=== PATIENT | male | born 1965 | race Caucasian/White ===

== ENCOUNTER → 2016-07-03 | Outpatient (CLI) | payer BC ==
[2016-07-03 14:11] VITALS: BP 133/80
== END ==
LOC: MHUC 13:27
PROVIDERS: ATTEND Physician Assistant
DX: S29.012A Strain of muscle and tendon of back wall of thorax, initial encounter (principal); S46.812A Strain of other muscles, fascia and tendons at shoulder and upper arm level, left arm, initial encounter; X58.XXXA Exposure to other specified factors, initial encounter
CPT/HCPCS: 99213

== ENCOUNTER 2016-08-07 05:16 | Emergency (ER) | payer BC, OTHER ==
[~2016-08-07] VITALS: Ht 182.9 cm; Wt 66.8 kg
[~2016-08-07 05:16] MED LIST: CYCL10TA45 PO; METH4TAB27 PO
--- OUTSIDE RECORDS SUMMARY | 2016-08-07 05:20 | XMS REPORT ---
Author Author [facility] Organization [facility] Address [address] [place] [address] Phone [phone] Summary purpose CCDA Sent to [facility] Chief Complaint and Reason for Visit Admit Diagnosis 1 OPEN WOUND OF FINGER Problem list No authorized problems tracked for continuity of care are available for this visit. Encounters No authorized problems tracked for encounter diagnoses are available for this visit. Medications No home medications recorded for this patient visit Allergies, adverse reactions, alerts Allergen Category Ingredient Status Reaction Severity Onset No Known Drug Allergy No Known Drug Allergy No Known Drug Allergy Active No Known Food Allergy No Known Food Allergy No Known Food Allergy Active Immunizations No immunizations recorded for this patient visit Relevant diagnostic tests and/or laboratory data No authorized results are available for this patient visit History of procedures Procedure Code Code Type Description Date Performed Performing Physician 08676 CPT-4 RPR S/N/AX/GEN/TRNK 2.5CM/< 12-23-2014 MARTHA PONCE 02156 CPT-4 EMERGENCY DEPT VISIT 12-23-2014 MARTHA PONCE Functional status Cognitive Status Finding Observation Time Level of Consciousne Alert 38-11-964976:28 Oriented to Person Yes 45-19-961005:[address] Yes 66-37-449028:28 Oriented to Time Yes 37-37-402913:28 Vital signs Type Value Date Respirations 16 93-56-099084:45 Pulse 79 71-58-963781:45 O2 Saturation 97% 11-20-998284:45 Systolic Blood Press 121mm/HG 94-75-213015:45 Diastolic Blood Pres 84mm/HG 55-39-579995:45 Temperature (Fahr) 98.4Degrees 31-12-561613:45 Height 71in 44-50-725676:45 Weight 170LB 64-72-522361:45 Social history Type Value Smoking Status CURRENT EVERY DAY SMOKER Treatment Plan No treatment plan text is available for this visit. Hospital discharge instructions No discharge instruction text is available for this visit.
[2016-08-07 06:26] LABS: BASOPHILS % (AUTO) 0 % (0-2); EOSINOPHILS # (AUTO) 0.2 10^3uL; EOSINOPHILS % (AUTO) 1 % (0-4); LYMPHOCYTES # (AUTO) 2.3 X10^3; MEAN CORPUSCULAR HGB CONC 34.5 g/dL (31.0-37.0); MEAN CORPUSCULAR VOLUME 92 FL (80-100); MEAN PLATELET VOLUME 9.7 FL (6.0-9.5); MONOCYTES # (AUTO) 1.5 X10^3; MONOCYTES % (AUTO) 10 % (3-11); NEUTROPHILS % (AUTO) 72 % (51-67); PLATELET COUNT 266 10^3uL (150-450); WHITE BLOOD COUNT 13.92 10^3uL (4.0-11.0)
[2016-08-07 06:33] LABS: BILIRUBIN,URINE Negative (Negative); CLARITY,URINE Clear; COLOR,URINE Yellow; GLUCOSE, URINE (UA) Negative (Negative); LEUKOCYTE ESTERASE ,URINE Negative (Negative); PH,URINE 6.5 (5.0 - 8.0); UROBILINOGEN,URINE 0.2 mg/dL (0.2-1.0)
[2016-08-07 06:38] LABS: ALBUMIN 4.1 g/dL (3.4-5.0); ANION GAP 15.9 MEQ/L (3-15); CALCULATED IONIZED CALCIUM 3.7 mg/dL (3.8-4.6); TOTAL PROTEIN 7.5 g/dL (6.4-8.5)
[2016-08-07 06:44] LABS: MEAN CORPUSCULAR HEMOGLOBIN 31.7 PG (26.0-34.0)
--- NOTE | 2016-08-07 06:54 | NUR ---
Pt report given to Jose Langley RN for continued care of pt
[2016-08-07 06:58] LABS: URINE CENTRIFUGED VOLUME 12 mL
[2016-08-07] MEDS ORDERED: AMOX500C5 PO (08:12)
[2016-08-07 08:21] VITALS: BP 125/75
== END 2016-08-07 08:19 | disposition home or self-care (01) ==
LOC: ED 05:19
DX: J32.9 Chronic sinusitis, unspecified (principal); F17.210 Nicotine dependence, cigarettes, uncomplicated
CPT/HCPCS: 36415; 80053; 81003; 81015; 84443; 85025; 86140; 86308; 87486; 87581; 87633; 87798; 99282; 99283

== ENCOUNTER → 2016-09-18 | Outpatient (CLI) | payer OTHER ==
[~2016-09-18] MED LIST changes: +AMOX500C5 PO; +POLY10DR OU; +PRED20TA PO
[2016-09-18 12:50] VITALS: BP 129/73
--- NOTE | 2016-09-18 12:50 | Urgent Care T Sheet Gen (E) ---
Intake General Temperature (Fahrenheit): 98.7 Pulse: 92 Blood Pressure Systolic: 129 Blood Pressure Diastolic: 73 Respirations: 18 SPO2: 98 Description of Symptoms Patient presents with an allergy flare up. States his eyes started to bother him on Friday. states they were matted shut when he woke up. Eyes have continued to tear and feel gritty. Notes light sensitivity. Nose has been slightly congested and he has a sore throat with mild cough. Took some Benadryl the other night which helped. History of Present Illness Allergies: Coded Allergies: No Known Drug Allergies (Unverified , 08/07/16) Home Meds Active Scripts Prednisone 20 Mg [id number] Mg PO DAILY #6 TAB Prov:CONSTANTIN CRYSTAL 09/18/16 Polymyxin B Sulfate/Tmp (Polytrim Eye Drops)10 Ml Drops1 Drop OU QID #1 BTL 1 drop in each eye QID x 7 days Prov:CONSTANTIN CRYSTAL 09/18/16 Amoxicillin (Amoxil)500 Mg [id number] Mg PO TID #30 CAP Ref 0 Prov:JUAN C TUCKER DO 08/07/16 Respiratory Constitutional Symptoms: No syptoms reported EENTM: Blurred vision Eye tearing Nose Congestion Throat pain Respiratory: Cough Cardiovascular: No symptoms reported Gastrointestinal/Abdominal: No symptoms reported All Other Systems Reviewed Remaining Systems: All other systems reviewed with negative findings Past Mrmjcgk-Nwljxj-Hpbhma Hx Patient's Social History Alcohol Use: Rarely Uses Smoking Status: Current every day smoker Surgeries/Hospitalizations Hospitalization/Surgery Hx: Left knee scope for meniscus repair 5th toe surgery left foot Respiratory Respiratory History: None Cardiovascular Cardiovascular History: None Gastrointestinal GI/Endocrine History: None Diabetes Diabetes: No HEENT Impaired Vision: Glasses Hearing Impaired: None Psychosocial Behavior Disorders: Stress Physical Exam Physical Exam General Appearance: WD/WN No apparent distress Eyes, Ears, Nose, Throat Ex: PERRL/EOMI (bilateral conjuctiva are red. eye lids are swollen. some mattering in the eyelashes.) TMs normal Pharyngeal erythema (cobblestone appearance) Other (pale nasal turbinates with clear drainage) Neck Exam: SuppleNo Lymphadenopathy Respiratory Exam: Lungs clear Normal breath sounds Cardiovascular Exam: Regular rate, rhythm Departure Urgent Care Impression Impression: Primary Impression: Conjunctivitis Qualified Code: H10.33 - Unspecified acute conjunctivitis, bilateral Additional Impression: Allergic rhinitis Qualified Code: J30.1 - Allergic rhinitis due to pollen Departure Disposition: HOME OR SELF-CARE Condition: Stable Additional Instructions: I believe the patient has a combination of causes to his symptoms. While his eye symptoms initially sounded like allergic conjunctivitis, I believe they have progressed into a secondary bacterial infection. I have prescribed Polytrim for that. I have also prescribed Prednisone x 3 days for allergies and swelling. DC Benadryl as it causes drowsiness, take Claritin instead Rest. Fluids Return as needed Patient understands DC instructions. All questions were answered. Scripts Prednisone 20 Mg [id number] Mg PO DAILY #6 TAB Prov:CONSTANTIN CRYSTAL 09/18/16 Polymyxin B Sulfate/Tmp (Polytrim Eye Drops)10 Ml Drops1 Drop OU QID #1 BTL 1 drop in each eye QID x 7 days Prov:CONSTANTIN CRYSTAL 09/18/16 End of report . CONSTANTIN CRYSTAL September 18, 2016 10:22
== END ==
LOC: MHUC 09:57
PROVIDERS: ATTEND Physician Assistant
DX: H10.33 Unspecified acute conjunctivitis, bilateral (principal); J30.1 Allergic rhinitis due to pollen
CPT/HCPCS: 99213